=== PATIENT | female | born 1945 | race Caucasian/White ===

== ENCOUNTER 2016-12-26 15:30 | Inpatient (IN) | payer OTHER, MEDICARE ==
[~2016-12-26] VITALS: Ht 157.5 cm; Wt 83.1 kg
[2016-12-26 15:30] VITALS: BP 154/76; PULSE 77; RESP 16; TEMP 98.2; O2SAT 98
[2016-12-26] MEDS ORDERED: ASPI-147 PO (15:57)
[2016-12-26] MEDS ORDERED: VALS1TAB70 PO (15:57)
[2016-12-26] MEDS ORDERED: RANI150T PO (15:57)
[2016-12-26] MEDS ORDERED: ATEN100T PO (15:57)
[2016-12-26] MEDS ORDERED: LEVO75TA3 PO (15:57)
[2016-12-26] MEDS ORDERED: ATOR20TA15 PO (15:57)
[2016-12-26] MEDS ORDERED: CLON0.1T PO (15:57)
[2016-12-26 16:00] VITALS: BP 169/72; PULSE 64; RESP 16; O2SAT 98
[2016-12-26] MEDS ORDERED: SODIUM CHLORIDE 0.9% FLUSH 5 ML FLUSH IVF PRN (16:00)
--- NOTE | 2016-12-26 16:00 | PD ---
HPI Chief Complaint: General Weakness Time Seen by Provider: 15:47 Travel History International Travel<30 days: No Contact w/Intl Traveler<30days: No Traveled to known affect area: No History of Present Illness HPI The patient was seen and examined in the presence of the nurse. This patient complains of chest pain and heaviness. Duration 1 hour. Severity was moderate but it stopped on its own. She is currently pain-free. There were no obvious alleviating factors. Not exertionally induced. She denies history of coronary artery disease. Never had stress testing. She had been having some right upper quadrant pain and she got an outpatient ultrasound earlier today. However she is not having any abdominal pain now. She has some generalized weakness and fatigue. History of chronic anemia. [facility] Social History Alcohol Use: No Tobacco Use: No Substance Use: No Allergies-Medications (Allergen,Severity, Reaction): Coded Allergies: Codeine (Verified Allergy, Unknown, 12/26/16) Hydroxyzine (Verified Allergy, Unknown, 12/26/16) Morphine (Verified Allergy, Unknown, 12/26/16) Verapamil (Verified Allergy, Unknown, 12/26/16) Reported Meds & Prescriptions Reported Meds & Active Scripts Active Reported Clonidine (Clonidine HCl) 0.1 Mg Tab 0.1 Mg PO BID PRN Ranitidine (Ranitidine HCl) 150 Mg Tab 150 Mg PO DAILY Ecotrin Low Strength (Aspirin) 81 Mg Tabdr 81 Mg PO DAILY Atenolol 100 Mg Tab 100 Mg PO DAILY Levothyroxine (Levothyroxine Sodium) 75 Mcg Tab 75 Mcg PO DAILY Atorvastatin (Atorvastatin Calcium) 20 Mg Tab 20 Mg PO HS Valsartan 320 Mg Tab 320 Mg PO DAILY Review of Systems General / Constitutional: No: Fever Eyes: No: Visual changes HENT: No: Headaches Cardiovascular: Positive: Chest Pain or Discomfort Respiratory: No: Shortness of Breath Gastrointestinal: Positive: Nausea, Abdominal Pain Genitourinary: No: Dysuria Musculoskeletal: Positive: Weakness, No: Pain Skin: No Rash Neurologic: Positive: Weakness Psychiatric: No: Depression Endocrine: No: Polydipsia Hematologic/Lymphatic: No: Easy Bruising Physical Exam Narrative GENERAL: Well-nourished, well-developed patient in no apparent distress. SKIN: Warm and dry. HEAD: Atraumatic. Normocephalic. EYES: Pupils equal and round. No scleral icterus. No injection or drainage. ENT: No nasal bleeding or discharge. Mucous membranes pink and moist. NECK: Trachea midline. No JVD. CARDIOVASCULAR: Regular rate and rhythm. No murmur appreciated. Ectopic beat occasionally RESPIRATORY: No accessory muscle use. Clear to auscultation. Breath sounds equal bilaterally. GASTROINTESTINAL: Abdomen soft, non-tender, nondistended. Hepatic and splenic margins not palpable. MUSCULOSKELETAL: No obvious deformities. No clubbing. No cyanosis. No edema. NEUROLOGICAL: Awake and alert. No obvious cranial nerve deficits. Motor grossly within normal limits. Normal speech. PSYCHIATRIC: Appropriate mood and affect; insight and judgment normal. Data Data Last Documented VS Vital Signs Date Time Temp Pulse Resp B/P Pulse Ox O2 Delivery O2 Flow Rate FiO2 12/26/16 16:00 64 16 169/72 98 12/26/16 15:30 98.2 12/26/16 15:30 Nasal Cannula 3 Orders Electrocardiogram (12/26/16 15:47) Ckmb (Isoenzyme) Profile (12/26/16 15:47) Complete Blood Count With Diff (12/26/16 15:47) Prothrombin Time / Inr (Pt) (12/26/16 15:47) Act Partial Throm Time (Ptt) (12/26/16 15:47) Troponin I (12/26/16 15:47) Chest, Single Ap (12/26/16 15:47) Ecg Monitoring (12/26/16 15:47) Iv Access Insert/Monitor (12/26/16 15:47) Oximetry (12/26/16 15:47) Oxygen Administration (12/26/16 15:47) Sodium Chloride 0.9% Flush (Ns Flush) (12/26/16 16:00) Lipase (12/26/16 15:47) Comprehensive Metabolic Panel (12/26/16 15:47) B-Type Natriuretic Peptide (12/26/16 16:42) Ceftriaxone Inj (Rocephin Inj) (12/26/16 16:45) Admit To Inpatient (12/26/16 ) Vital Signs (Adult) Q4H (12/26/16 16:41) Activity Oob Ad Deyanira (12/26/16 16:41) 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 .CONTINUOUS (12/26/16 16:41) ^ Notify Dr: Other (12/26/16 16:41) Sodium Chloride 0.9% Flush (Ns Flush) (12/26/16 16:45) Sodium Chloride 0.9% Flush (Ns Flush) (12/26/16 21:00) Acetaminophen (Tylenol) (12/26/16 16:45) Ondansetron Inj (Zofran Inj) (12/26/16 16:45) Enoxaparin Inj (Lovenox Inj) (12/26/16 17:00) Scd Bilateral/Knee High ADWOA.BID (12/26/16 16:41) Naloxone Inj (Narcan Inj) (12/26/16 16:45) Inpatient Certification (12/26/16 ) Levofloxacin (Levaquin) (12/26/16 18:00) Admit Order (Ed Use Only) (12/26/16 16:43) Aspirin Ec (Ecotrin Ec) (12/27/16 09:00) Atenolol (Tenormin) (12/27/16 09:00) Atorvastatin (Lipitor) (12/26/16 21:00) Levothyroxine (Synthroid) (12/27/16 06:00) Valsartan (Diovan) (12/27/16 09:00) Labs Laboratory Tests Test 12/26/16 15:48 White Blood Count 7.2 TH/MM3 Red Blood Count 3.57 MIL/MM3 Hemoglobin 9.4 GM/DL Hematocrit 30.0 % Mean Corpuscular Volume 84.1 FL Mean Corpuscular Hemoglobin 26.2 PG Mean Corpuscular Hemoglobin 31.2 % Concent Red Cell Distribution Width 20.2 % Platelet Count 255 TH/MM3 Mean Platelet Volume 8.2 FL Neutrophils (%) (Auto) 78.6 % Lymphocytes (%) (Auto) 15.1 % Monocytes (%) (Auto) 4.8 % Eosinophils (%) (Auto) 0.9 % Basophils (%) (Auto) 0.6 % Neutrophils # (Auto) 5.7 TH/MM3 Lymphocytes # (Auto) 1.1 TH/MM3 Monocytes # (Auto) 0.3 TH/MM3 Eosinophils # (Auto) 0.1 TH/MM3 Basophils # (Auto) 0.0 TH/MM3 CBC Comment DIFF FINAL Differential Comment Prothrombin Time 11.0 SEC Prothromb Time International 1.0 RATIO Ratio Activated Partial 24.0 SEC Thromboplast Time Sodium Level 131 MEQ/L Potassium Level 3.9 MEQ/L Chloride Level 96 MEQ/L Carbon Dioxide Level 25.8 MEQ/L Anion Gap 9 MEQ/L Blood Urea Nitrogen 12 MG/DL Creatinine 0.83 MG/DL Estimat Glomerular Filtration 68 ML/MIN Rate Random Glucose 180 MG/DL Calcium Level 8.0 MG/DL Total Bilirubin 0.5 MG/DL Aspartate Amino Transf 27 U/L (AST/SGOT) Alanine Aminotransferase 27 U/L (ALT/SGPT) Alkaline Phosphatase 87 U/L Total Creatine Kinase 66 U/L Troponin I 0.17 NG/ML B-Type Natriuretic Peptide 206 PG/ML Total Protein 6.6 GM/DL Albumin 2.9 GM/DL Lipase 71 U/L MDM Medical Decision Making Medical Screen Exam Complete: Yes Emergency Medical Condition: Yes Medical Record Reviewed: Yes Differential Diagnosis Differential diagnosis includes [place], angina, pericarditis, pleurisy, GERD, anxiety. Narrative Course I have reviewed the patient's electronic medical record. She has not been here before IV placed I reviewed the EKG shows sinus rhythm with PACs occasionally and no ST elevation I reviewed the chest x-ray which shows bilateral infiltrates, inflammatory versus infectious Extended cardiac monitoring shows sinus rhythm with some ectopy CBC is normal Metabolic profile is normal CK is normal Troponin is elevated at 0.17, significance unclear at present Coagulation studies are normal She does have a productive cough for one day. I gave her 1 g IV Rocephin Added BNP after discussion with hospitalist who will admit Diagnosis Primary Impression: Chest pain in adult Additional Impressions: Elevated troponin I level Pulmonary infiltrate Admitting Information Admitting Physician Requests: it Jonny Knapp MD Dec 26, 2016 16:00
[2016-12-26 16:07] LABS: CHLORIDE 96 MEQ/L (98-107); POTASSIUM 3.9 MEQ/L (3.5-5.1); SODIUM (NA) 131 MEQ/L (136-145)
[2016-12-26 16:10] LABS: AUTOMATED NEUTROPHIL # 5.7 TH/MM3 (1.8-7.7); BASOPHIL % 0.6 % (0.0-2.0); EOSINOPHIL # 0.1 TH/MM3 (0-0.4); EOSINOPHIL % 0.9 % (0.0-4.0); HEMO FLAGS DIFF FINAL; LYMPH % 15.1 % (9.0-44.0); LYMPHOCYTE # 1.1 TH/MM3 (1.0-4.8); MEAN CELL VOLUME 84.1 FL (80.0-100.0); MEAN CORPUSCULAR HEMOGLOBIN 26.2 PG (27.0-34.0); MEAN CORPUSCULAR HGB CONC 31.2 % (32.0-36.0); MONO % 4.8 % (0.0-8.0); NEUT % 78.6 % (16.0-70.0); PLATELET COUNT 255 TH/MM3 (150-450); RED BLOOD COUNT 3.57 MIL/MM3 (4.00-5.30); RED CELL DISTRIBUTION WIDTH 20.2 % (11.6-17.2); WHITE BLOOD COUNT 7.2 TH/MM3 (4.0-11.0)
[2016-12-26 16:11] LABS: ANION GAP 9 MEQ/L (5-15); BICARBONATE 25.8 MEQ/L (21.0-32.0); BLOOD UREA NITROGEN 12 MG/DL (7-18)
[2016-12-26 16:14] LABS: ALT (GPT) 27 U/L (10-53); AST (GOT) 27 U/L (15-37); GLOMERULAR FILTRATION RATE 68 ML/MIN (>89)
[2016-12-26 16:15] LABS: TOTAL BILIRUBIN ADULT 0.5 MG/DL (0.2-1.0)
[2016-12-26 16:17] LABS: ALKALINE PHOSPHATASE 87 U/L (45-117)
[2016-12-26 16:19] LABS: CREATINE KINASE 66 U/L (26-192)
--- NOTE | 2016-12-26 16:20 | RADHPO ---
EXAM DATE/TIME: 12/26/2016 16:04 [place] COMPARISON: No previous studies available for comparison. INDICATIONS : Left sided chest pain and tightness starting today MEDICAL HISTORY : None. SURGICAL HISTORY : None. ENCOUNTER: Initial ACUITY: 1 day PAIN SCORE: 5/10 LOCATION: Left chest FINDINGS: Ill-defined but extensive infiltrate seen right lung, probably involve all segments of all lobes. The re is relatively minor consolidation on the left, primarily the base. No pleural effusion seen. No pn eumothorax. CONCLUSION: Bilateral vague infiltrates, right considerably worse than left. Findings are nonspecific but presuma pieter infectious or inflammatory etiology. Sergei Louis MD on December 26, 2016 at 16:17 Board Certified Radiologist. This report was verified electronically.
[2016-12-26] MEDS ORDERED: cefTRIAXone INJ 1,000 MG in SODIUM CHLORIDE 0.9% INJ 100 ML IV ONE (16:45)
[2016-12-26] MEDS ORDERED: SODIUM CHLORIDE 0.9% FLUSH 5 ML FLUSH FLUSH PRN (16:45)
[2016-12-26] MEDS ORDERED: ACETAMINOPHEN 325 MG TAB PO PRN (16:45)
[2016-12-26] MEDS ORDERED: NALOXONE HCL 0.4 MG/ML AMP IV PRN (16:45)
[2016-12-26] MEDS ORDERED: ENOXAPARIN SODIUM 40 MG/0.4 ML SYRINGE SQ SCH (17:00)
[2016-12-26 17:26] VITALS: BP 141/61
[2016-12-26] MEDS: LEVOFLOXACIN 750 MG TAB PO SCH (17:59)
[2016-12-26 18:00] VITALS: PULSE 75
[2016-12-26] MEDS: ONDANSETRON HCL 4 MG/2 ML VIAL IVP PRN (18:56)
[2016-12-26 20:50] VITALS: BP 165/65; PULSE 76; RESP 18; TEMP 96.5; O2SAT 100
[2016-12-26 21:00] VITALS: PULSE 74
[2016-12-26] MEDS ORDERED: ATORVASTATIN 20 MG TAB PO SCH (21:00)
[2016-12-26] MEDS: SODIUM CHLORIDE 0.9% FLUSH 5 ML FLUSH FLUSH SCH (22:43)
[2016-12-26] MEDS: FAMOTIDINE 20 MG TAB PO SCH (22:43)
[2016-12-27] VITALS (11 sets, daily range): BP systolic 101–179; BP diastolic 68–94; PULSE 60–79; RESP 18–20; TEMP 96.8–97.6; O2SAT 94–100
[2016-12-27] MEDS ORDERED: cloNIDine HCL 0.1 MG TAB PO PRN (01:00)
[2016-12-27] MEDS ORDERED: HEPARIN-D5W INJ 250 ML IV SCH (01:15)
[2016-12-27 01:42] LABS: HEMATOCRIT 27.8 % (35.0-46.0); MEAN CELL VOLUME 83.9 FL (80.0-100.0); MEAN CORPUSCULAR HGB CONC 32.2 % (32.0-36.0); PLATELET COUNT 216 TH/MM3 (150-450); RED BLOOD COUNT 3.31 MIL/MM3 (4.00-5.30); RED CELL DISTRIBUTION WIDTH 20.6 % (11.6-17.2); REVIEW FLAG FINAL; WHITE BLOOD COUNT 6.1 TH/MM3 (4.0-11.0)
[2016-12-27 02:10] LABS: APTT (PATIENT) 26.4 SEC (24.3-30.1); PROTHROMBIN TIME - PATIENT 11.6 SEC (9.8-11.6)
[2016-12-27] MEDS: LEVOTHYROXINE SODIUM 75 MCG TAB PO SCH (05:16)
[2016-12-27] MEDS: ONDANSETRON HCL 4 MG/2 ML VIAL IVP PRN ×2 (05:30→22:17)
[2016-12-27] MEDS: SODIUM CHLORIDE 0.9% FLUSH 5 ML FLUSH FLUSH SCH ×2 (09:00→20:24)
[2016-12-27] MEDS ORDERED: RESP: ALBUTEROL 2.5 MG/3 ML NEB (PRN) NEB (09:15)
[2016-12-27] MEDS ORDERED: MORPHINE SULFATE 4 MG/ML INJ IV PUSH PRN (09:15)
[2016-12-27] MEDS ORDERED: NITROGLYCERIN 0.4 MG SL 25 TABS/BTL SL PRN (09:15)
--- NOTE | 2016-12-27 09:24 | HHI.HP ---
HPI Service [facility] Primary Care Physician Radames Contreras M.D. Admission Diagnosis chest pain, elevated troponin,pulm inflitrates Diagnoses: Chief Complaint: Head pressure Chest pressure N/V diaphoresis Cough Travel History International Travel<30 Days: No Contact w/Intl Traveler <30 Da: No Traveled to Known Affected Are: No History of Present Illness This is a 71-year-old female with past medical history significant for high blood pressure, dyslipidemia, hypothyroidism, prediabetes, GERD and chronic anemia requiring regular iron infusions who presents to [facility] ED with complaints of 10 out of 10 "chest pressure" that occurred yesterday as she was preparing to have an abdominal ultrasound. Patient states she was at an outpatient imaging center preparing to have an abdominal ultrasound for a history of chronic lower abdominal pain as she stood up to go back for her testing she developed sudden onset of severe "head pressure" that was then followed by 10 out of 10 left-sided chest pressure with associated diaphoresis, nausea and vomiting, SOB and generalized weakness. Patient states that her symptoms resolved after a few minutes but when she went to go to the restroom shortly after, she had a single episode of nonbloody, nonmucoid diarrhea. Patient reports due to her chronic anemia that she never feels well. Her last iron infusion was 1 week ago. She admits to intermittent cough without any sputum production, sweats and fatigue for the past week. She denies any sputum production up until today when she coughed up a scant amount of whitish phlegm. Currently she is not having any complaints of head or chest pressure. She is still persistently nauseated with several episodes of vomiting. She has not had any more diarrhea since her admission. She denies any complaints of abdominal pain at this time. She denies any blood in the stool or blood in her urine. She also denies any dysuria. Review of her serial EKGs reveal some nonspecific changes and no evidence of ischemia. Serial troponins are 0.17, 0.29 and 0.26. Laboratory studies from the ED are significant for anemia with hemoglobin and hematocrit of 9.4 and 30 respectively. BNP is 206. Sodium 131. Patient denies any chest pain or pressure overnight but does report that she had some pain in the left shoulder which is now resolved. Review of Systems Constitutional: COMPLAINS OF: Diaphoretic episodes (patient reports ongoing episodes of "sweats" 1 week, most pronounced yesterday with episode of chest pressure), Fatigue, DENIES: Fever, Weight gain, Weight loss, Chills, Dizziness Endocrine: DENIES: Polydipsia, Polyuria Eyes: DENIES: Blurred vision, Diplopia, Double Vision Ears, nose, mouth, throat: COMPLAINS OF: Throat pain (mild, 1 day, attributed to recent vomiting episodes), DENIES: Tinnitus, Vertigo, Nasal discharge, Running Nose, Sinus Pain Respiratory: COMPLAINS OF: Cough (1 week with scant sputum production today only), DENIES: Wheezing, Hemoptysis, Shortness of breath Cardiovascular: COMPLAINS OF: Chest pain (described as chest pressure as stated in history of present illness), DENIES: Palpitations, Syncope, Dyspnea on Exertion, PND, Lower Extremity Edema Gastrointestinal: COMPLAINS OF: Abdominal pain (left lower quadrant, chronic, asymptomatic at present), Diarrhea (1 episode yesterday, nonbloody), Nausea, Vomiting, DENIES: Black stools, Bloody stools Genitourinary: DENIES: Urinary frequency, Urgency, Hematuria, Dysuria Musculoskeletal: DENIES: Joint Swelling, Back pain, Neck pain Integumentary: DENIES: Pruritus, Rash Hematologic/lymphatic: DENIES: Lymphadenopathy Immunologic/allergic: DENIES: Urticaria Neurologic: COMPLAINS OF: Headache (patient is a headache and reports head pressure yesterday, now resolved), DENIES: Localized weakness, Paresthesias, Speech Problems Psychiatric: DENIES: Anxiety, Confusion, Depression Past Family Social History Past Medical History Chronic anemia undergoing iron infusions, last treatment 1 week ago Hypertension Hypothyroidism GERD Dyslipidemia Pre-diabetic Past Surgical History Partial hysterectomy Back surgery 2 Reported Medications Clonidine (Clonidine HCl) 0.1 Mg Tab 0.1 Mg PO BID PRN Ranitidine (Ranitidine HCl) 150 Mg Tab 150 Mg PO DAILY Ecotrin Low Strength (Aspirin) 81 Mg Tabdr 81 Mg PO DAILY Atenolol 100 Mg Tab 100 Mg PO DAILY Levothyroxine (Levothyroxine Sodium) 75 Mcg Tab 75 Mcg PO DAILY Atorvastatin (Atorvastatin Calcium) 20 Mg Tab 20 Mg PO HS Valsartan 320 Mg Tab 320 Mg PO DAILY Allergies: Coded Allergies: Codeine (Verified Allergy, Unknown, 12/26/16) Hydroxyzine (Verified Allergy, Unknown, 12/26/16) Morphine (Verified Allergy, Unknown, 12/26/16) Verapamil (Verified Allergy, Unknown, 12/26/16) Active Ordered Medications Current Medications Medications (Trade) Dose Ordered Sig/Farida Route Start Time Stop Time Status Last Admin (NS Flush) 2 ml UNSCH PRN FLUSH 12/26/16 16:45 (NS Flush) 2 ml BID FLUSH 12/26/16 21:00 12/26/16 22:43 (Tylenol) 650 mg Q4H PRN PO 12/26/16 16:45 (Zofran Inj) 4 mg Q6H PRN IVP 12/26/16 16:45 12/27/16 05:30 (Narcan Inj) 0.4 mg UNSCH PRN IV 12/26/16 16:45 (Levaquin) 750 mg Q24H PO 12/26/16 18:00 12/26/16 17:59 (Ecotrin Ec) 81 mg DAILY PO 12/27/16 09:00 (Tenormin) 100 mg DAILY PO 12/27/16 09:00 (Lipitor) 20 mg HS PO 12/26/16 21:00 12/26/16 22:43 (Synthroid) 75 mcg DAILY@0600 PO 12/27/16 06:00 12/27/16 05:16 (Pepcid) 20 mg BID PO 12/26/16 21:00 12/26/16 22:43 (Diovan) 320 mg DAILY PO 12/27/16 09:00 Clonidine 0.1 mg 0.1 mg Q6H PRN PO 12/27/16 01:00 12/27/16 05:28 (Heparin-D5W Inj) 250 ml @ 0 mls/hr TITRATE IV 12/27/16 01:15 12/27/16 05:14 Family History Family medical history significant for Mother with unknown cancer Father, Alzheimer's Brothers 2 with diabetes Brother with a history of a IA in his 50s, cardiac stents Social History Patient denies any tobacco use alcohol consumption or illicit drug use. She currently lives with her daughter. She is fully functional with all of her ADLs. Physical Exam Vital Signs Vital Signs Date Time Temp Pulse Resp B/P Pulse Ox O2 Delivery O2 Flow Rate FiO2 12/27/16 08:00 96.8 76 18 167/76 100 Automatic Cuff 12/27/16 04:00 97.1 75 20 178/88 100 12/27/16 01:47 150/92 12/27/16 00:00 96.8 73 20 179/94 100 12/26/16 21:00 74 12/26/16 20:50 96.5 76 18 165/65 100 12/26/16 18:00 75 12/26/16 17:26 75 16 141/61 100 12/26/16 16:00 64 16 169/72 98 12/26/16 15:30 98.2 77 16 154/76 98 12/26/16 15:30 98 Nasal Cannula 3 12/26/16 15:30 64 16 98 12/26/16 15:30 98 Physical Exam GENERAL: This is a well-nourished, well-developed patient, in no apparent distress. A&Ox3. SKIN: No rashes, ecchymoses or lesions. Cool and dry. HEAD: Atraumatic. Normocephalic. No temporal or scalp tenderness. EYES: Pupils equal round and reactive. Extraocular motions intact. No scleral icterus. No injection or drainage. ENT: Nose without bleeding, purulent drainage or septal hematoma. Throat without erythema, tonsillar hypertrophy or exudate. Uvula midline. Airway patent. NECK: Trachea midline. No JVD or lymphadenopathy. Supple, nontender, no meningeal signs. CARDIOVASCULAR: Regular rate and rhythm without murmurs, gallops, or rubs. RESPIRATORY: Coarse BS noted. Breath sounds equal bilaterally. No wheezes, rales , or rhonchi. GASTROINTESTINAL: Abdomen soft, non-tender, nondistended. No hepato-splenomegaly , or palpable masses. No guarding. MUSCULOSKELETAL: Extremities without clubbing, cyanosis, or edema. No joint tenderness, effusion, or edema noted. No calf tenderness. NEUROLOGICAL: Awake and alert. Cranial nerves II through XII intact. Motor and sensory grossly within normal limits. Five out of 5 muscle strength in all muscle groups. Normal speech. Laboratory Laboratory Tests Test 12/26/16 12/26/16 12/27/16 12/27/16 15:48 22:37 01:30 05:15 White Blood Count 7.2 6.1 Red Blood Count 3.57 3.31 Hemoglobin 9.4 8.9 Hematocrit 30.0 27.8 Mean Corpuscular Volume 84.1 83.9 Mean Corpuscular Hemoglobin 26.2 27.0 Mean Corpuscular Hemoglobin 31.2 32.2 Concent Red Cell Distribution Width 20.2 20.6 Platelet Count 255 216 Mean Platelet Volume 8.2 8.2 Neutrophils (%) (Auto) 78.6 Lymphocytes (%) (Auto) 15.1 Monocytes (%) (Auto) 4.8 Eosinophils (%) (Auto) 0.9 Basophils (%) (Auto) 0.6 Neutrophils # (Auto) 5.7 Lymphocytes # (Auto) 1.1 Monocytes # (Auto) 0.3 Eosinophils # (Auto) 0.1 Basophils # (Auto) 0.0 CBC Comment DIFF FINAL Differential Comment Prothrombin Time 11.0 11.6 Prothromb Time International 1.0 1.0 Ratio Activated Partial 24.0 26.4 Thromboplast Time Sodium Level 131 Potassium Level 3.9 Chloride Level 96 Carbon Dioxide Level 25.8 Anion Gap 9 Blood Urea Nitrogen 12 Creatinine 0.83 Estimat Glomerular Filtration 68 Rate Random Glucose 180 Calcium Level 8.0 Total Bilirubin 0.5 Aspartate Amino Transf 27 (AST/SGOT) Alanine Aminotransferase 27 (ALT/SGPT) Alkaline Phosphatase 87 Total Creatine Kinase 66 82 85 Troponin I 0.17 0.29 0.26 B-Type Natriuretic Peptide 206 Total Protein 6.6 Albumin 2.9 Lipase 71 Result Diagram: 12/27/16 0130 12/26/16 1548 Imaging Last 24 hours Impressions Chest X-Ray 12/26/16 1547 Signed Impressions: Service Date/Time: Monday, December 26, 2016 16:04 - CONCLUSION: Bilateral vague infiltrates, right considerably worse than left. Findings are nonspecific but presumably infectious or inflammatory etiology. Sergei Louis MD Assessment and Plan Assessment and Plan 71-year-old female with past medical history significant for high blood pressure , dyslipidemia, hypothyroidism, prediabetes, GERD and chronic anemia requiring regular iron infusions who presents to [facility] ED with complaints of 10 out of 10 left-sided chest "pressure" that occurred yesterday as she was preparing to have an abdominal ultrasound. Chest pain - Possible NSTEMI. EKGs personally interpreted no obvious ischemic changes, nonspecific T-wave abnormality - Admitted to inpatient with continuous cardiac monitoring - Elevated troponins. Consult cardiology. Continue on heparin drip. - Echocardiogram ordered - Obtain TSH, magnesium level and lipid panel - Aspirin and high-dose statin daily - Nitroglycerin and morphine when necessary - Supplemental oxygen - Nothing by mouth for cardiac testing PNA - Levaquin - Duronebs - Supplemental oxygen - Supportive measures History of chronic anemia requiring iron infusions, last treatment 1 week ago - Hemoglobin dropped from 9.4 to 8.9 - iron studies ordered - Fecal occult blood test pending - AM labs to monitor trend Hyponatremia on admission - Likely due to volume depletion - IV fluids - Follow up on echo results, check TSH - AM labs to monitor Hypertension - Home medications resumed at time of admission to include Atenolol and Valsartan and clonidine when necessary - BP with fair control - monitor and adjust treatment as indicated Hypothyroidism - Obtain TSH level - Resume home dose of levothyroxine Dyslipidemia - High-dose statin - Obtain lipid panel GERD - Zantac DVT prophylaxis - On heparin drip Written by Janice Sears PA-C acting as scribe for Dr. Rivera on 12/27/16 at 12:01. All or portions of this note were transcribed by [email or web address] Camacho. I, Dr. Linda Rivera personally performed the history, physical exam, and medical decision making; and confirmed the accuracy of the information in the transcribed note. Authenticated by Dr. Linda Rivera on 12/27/16 at 18:42. Update - lexiscan reviewed. Discrepancy in EF% between echo and nuclear stress test. Patient doing well on room air, not symptomatic. Can likely be DC'ed home tomorrow on PO levaquin. Advised to get repeat cxr in 4-6 weeks to ensure infiltrates clear. Physician Certification 2 Midnight Certification Type: Admission for Inpatient Services Order for Inpatient Services The services are ordered in accordance with Medicare regulations or non- Medicare payer requirements, as applicable. In the case of services not specified as inpatient-only, they are appropriately provided as inpatient services in accordance with the 2-midnight benchmark. Estimated LOS (days): 2 2 days is the estimated time the patient will need to remain in the hospital, assuming treatment plan goals are met and no additional complications. Post-Hospital Plan: Home Janice Sears Dec 27, 2016 09:23 Linda Rivera MD Dec 27, 2016 18:43
[2016-12-27] MEDS: VALSARTAN 160 MG TAB PO SCH (09:26)
[2016-12-27] MEDS: ASPIRIN EC 81 MG TABEC PO SCH (09:26)
[2016-12-27] MEDS: FAMOTIDINE 20 MG TAB PO SCH ×2 (09:26→20:24)
[2016-12-27] MEDS: ATENOLOL 100 MG TAB PO SCH (09:27)
[2016-12-27] MEDS: SODIUM CHLOR 0.9% 1000 ML INJ 1,000 ML IV SCH ×2 (09:30→20:24)
[2016-12-27 10:01] LABS: CHLORIDE 98 MEQ/L (98-107); POTASSIUM 4.2 MEQ/L (3.5-5.1); SODIUM (NA) 133 MEQ/L (136-145)
[2016-12-27 10:07] LABS: ANION GAP 7 MEQ/L (5-15); BICARBONATE 27.6 MEQ/L (21.0-32.0); MAGNESIUM 1.7 MG/DL (1.5-2.5)
[2016-12-27 10:09] LABS: BLOOD UREA NITROGEN 11 MG/DL (7-18)
[2016-12-27 10:10] LABS: GLOMERULAR FILTRATION RATE 69 ML/MIN (>89)
--- NOTE | 2016-12-27 10:27 | EKG ---
Date Performed: 12/26/2016 Time Performed: 15:40:24 PTAGE: 71 years EKG: Sinus rhythm with PAC(s) with borderline 1st degree A-V block Lateral T wave changes are nonspecific Borderline E CG NO PREVIOUS TRACING DOCTOR: Luis Enrique Vasquez Interpretating Date/Time 12/27/2016 10:25:39
--- NOTE | 2016-12-27 10:49 | EKG ---
Date Performed: 12/27/2016 Time Performed: 04:10:32 PTAGE: 71 years EKG: Sinus arrhythmia Lateral T wave changes are nonspecific Borderline ECG PREVIOUS TRACING : 12/27/2016 01.23 Compared to prior tracing no significant change DOCTOR: Luis Enrique Vasquez Interpretating Date/Time 12/27/2016 10:47:23
--- NOTE | 2016-12-27 10:50 | EKG ---
Date Performed: 12/27/2016 Time Performed: 01:23:06 PTAGE: 71 years EKG: Sinus arrhythmia Lateral T wave changes are nonspecific Borderline ECG PREVIOUS TRACING : 12/26/2016 15.40 Compared to prior tracing no significant change DOCTOR: Luis Enrique Vasquez Interpretating Date/Time 12/27/2016 10:47:31
[2016-12-27 11:09] LABS: APTT (PATIENT) 34.9 SEC (24.3-30.1)
[2016-12-27] MEDS ORDERED: REGADENOSON INJ 0.4 MG/5 ML SYR IV ONE (11:14)
[2016-12-27] MEDS: RESP: ALBUTEROL 2.5 MG/IPRATROPIUM 0.5 MG NEB (SCH) NEB ×3 (11:21→19:42)
--- NOTE | 2016-12-27 12:14 | EC ---
Study Study Date:12/27/2016 STUDY CONCLUSIONS SUMMARY - Left ventricle: The cavity size was normal. Wall thickness was normal. Systolic function was normal. The estimated ejection fraction was in the range of 55% to 60%. Wall motion was normal; there were no regional wall motion abnormalities. - Mitral valve: Mild to moderate regurgitation. - Tricuspid valve: Mild-moderate regurgitation. - Pulmonary arteries: Systolic pressure was mildly increased. PA peak pressure: 43mm Hg (S). If LV function is below 40, please consider prescribing an ACEI or ARB or document rationale for non-use. PROCEDURE DATA STUDY STATUS: Elective. Procedure: Transthoracic echocardiography. Image quality was good. Scanning was performed from the parasternal, apical, and subcostal acoustic windows. Study completion: The patient tolerated the procedure well. Transthoracic echocardiography. M-mode, complete 2D, complete spectral Doppler, and color Doppler. Patient status: Inpatient. CARDIAC ANATOMY LEFT VENTRICLE: The cavity size was normal. Wall thickness was normal. Systolic function was normal. The estimated ejection fraction was in the range of 55% to 60%. Wall motion was normal; there were no regional wall motion abnormalities. AORTIC VALVE: Trileaflet; mildly thickened, mildly calcified leaflets. Doppler: Transvalvular velocity was within the normal range. There was no stenosis. No regurgitation. AORTA: Aortic root: The aortic root was normal in size. MITRAL VALVE: Structurally normal valve. Doppler: Transvalvular velocity was within the normal range. There was no evidence for stenosis. Mild to moderate regurgitation. LEFT ATRIUM: The atrium was at the upper limits of normal in size. RIGHT VENTRICLE: The cavity size was normal. Wall thickness was normal. PULMONIC VALVE: Doppler: Transvalvular velocity was within the normal range. There was no evidence for stenosis. No regurgitation. TRICUSPID VALVE: Structurally normal valve. Doppler: Transvalvular velocity was within the normal range. Mild-moderate regurgitation. PULMONARY ARTERY: The main pulmonary artery was normal-sized. Systolic pressure was mildly increased. RIGHT ATRIUM: The atrium was normal in size. PERICARDIUM: There was no pericardial effusion. SYSTEMIC VEINS: Inferior vena cava: The vessel was normal in size. BASIC MEASUREMENTS ADULT Normal Left ventricle LV internal dimension, ED, chordal level, *36.4 mm 43-52 PLAX LV internal dimension, ES, chordal level, 28 mm 23-38 PLAX Fractional shortening, chordal level, PLAX *23 % >29 LV posterior wall thickness, ED 9.59 mm IVS/LVPW ratio, ED 1.26 <1.3 Ventricular septum Septal thickness, ED 12.1 mm Aortic valve Leaflet separation 16 mm 15-26 Right ventricle RV internal dimension, ED, PLAX 27.1 mm 19-38 BASIC MEASUREMENTS ADULT Normal Aortic valve Leaflet separation 16 mm 15-26 Aorta Root diameter, ED 28 mm 20-37 Left atrium Anterior-posterior dimension, ES 34 mm 19-40 LA/aortic root ratio 1.21 DOPPLER MEASUREMENTS ADULT Normal Main pulmonary artery Pressure, S *43 mm Hg =30 Tricuspid valve Regurgitant peak velocity 286 cm/s Peak RV-RA gradient, S 33 mm Hg Maximal regurgitant velocity 286 cm/s Systemic veins Estimated CVP 10 mm Hg Right ventricle RV pressure, S *43 mm Hg <30 LEGEND: Mean values are shown as u=mean value. Asterisk (*) fam values outside specified normal range. Prepared and signed by Nickolas Perales [id number]
[2016-12-27 12:53] LABS: FERRITIN 207 NG/ML (8-252); HDL CHOLESTEROL 39.8 MG/DL (40.0-60.0); LDL CHOLESTEROL 51 MG/DL (0-99); TRANSFERRIN IRON PROFILE 262 MG/DL (200-360)
--- NOTE | 2016-12-27 14:18 | RADHPO ---
EXAM DATE/TIME: 12/27/2016 11:14 [place] COMPARISON: No previous studies available for comparison. INDICATIONS : Midsternal chest pain for 1 hour. Myocardial infarction. DOSE: 25.8 mCi Tc99m Myoview at stress. 8.1 mCi Tc99m Myoview at rest. 0.4 mg Lexiscan STRESS SYMPTOMS: Shortness of breath and weak feeling. EJECTION FRACTION: 38% MEDICAL HISTORY : Hypertension. Hypercholesterolemia. SURGICAL HISTORY : Hysterectomy. Spine surgery. ENCOUNTER: Initial ACUITY: 1 day PAIN SCALE: 3/10 LOCATION: Midsternal chest TECHNIQUE: The patient underwent pharmacologic stress with infusion of prescribed dose. Continuous ECG tracing was monitored during stress. Gated SPECT imaging was performed after stress and conventional SPECT i maging was performed at rest. The examination was performed on a SPECT/CT scanner, both attenuation and non-corrected datasets were reviewed. FINDINGS: DISTRIBUTION: The maximum perfused segment at stress is in the lateral wall. PERFUSION STUDY: The pattern of perfusion at stress is within normal limits. GATED STUDY: There is global hypokinesis CONCLUSION: 1. No significant reversibility to suggest ischemia. 2. Global hypokinesis with ejection fraction 38%. RISK CATEGORY: Intermediate (1-3% Annual Mortality Rate) Jordon Maher MD on December 27, 2016 at 14:15 Board Certified Radiologist. This report was verified electronically.
[2016-12-27 14:27] LABS: HEMOGLOBIN A1a 1.3 %; HEMOGLOBIN A1b 1.5 %; HEMOGLOBIN Ao 86.1 %; HEMOGLOBIN LA1C 1.8 %; HEMOGLOBIN P3 3.6 %
[2016-12-27] MEDS ORDERED: MAGNESIUM OXIDE 400 MG TAB PO ONE (18:30)
[2016-12-27] MEDS: LEVOFLOXACIN 750 MG TAB PO SCH (18:37)
[2016-12-27 19:17] LABS: APTT (PATIENT) 39.3 SEC (24.3-30.1)
[2016-12-27] MEDS ORDERED: ATORVASTATIN 40 MG TAB PO SCH (21:00)
[2016-12-28] VITALS: BP 140/71; PULSE 67; RESP 20; TEMP 98; O2SAT 93
[2016-12-28 04:00] VITALS: BP 134/69; PULSE 61; RESP 20; TEMP 97; O2SAT 96
[2016-12-28] MEDS: LEVOTHYROXINE SODIUM 75 MCG TAB PO SCH (06:18)
[2016-12-28] MEDS: RESP: ALBUTEROL 2.5 MG/IPRATROPIUM 0.5 MG NEB (SCH) NEB ×2 (07:30→11:23)
[2016-12-28 07:37] LABS: AUTOMATED NEUTROPHIL # 3.2 TH/MM3 (1.8-7.7); BASOPHIL % 0.5 % (0.0-2.0); EOSINOPHIL % 0.9 % (0.0-4.0); HEMATOCRIT 25.7 % (35.0-46.0); LYMPH % 16.5 % (9.0-44.0); LYMPHOCYTE # 0.7 TH/MM3 (1.0-4.8); MEAN CELL VOLUME 84.3 FL (80.0-100.0); MEAN CORPUSCULAR HEMOGLOBIN 26.1 PG (27.0-34.0); MONO % 10.8 % (0.0-8.0); NEUT % 71.3 % (16.0-70.0); PLATELET COUNT 205 TH/MM3 (150-450); RED BLOOD COUNT 3.05 MIL/MM3 (4.00-5.30); RED CELL DISTRIBUTION WIDTH 20.3 % (11.6-17.2); WHITE BLOOD COUNT 4.4 TH/MM3 (4.0-11.0)
[2016-12-28 07:40] LABS: HEMO FLAGS AUTO DIFF
[2016-12-28 08:00] VITALS: BP 157/73; PULSE 76; RESP 16; TEMP 97.8; O2SAT 98
[2016-12-28 08:02] LABS: SCAN/DIFF AUTO DIFF CONFIRMED
[2016-12-28 08:15] VITALS: PULSE 76
--- NOTE | 2016-12-28 08:39 | MB ---
cc: DELROY ZIMMERMAN G. FREDERICK M.D. BARTHOLOMEW, BETH A. MD DATE OF CONSULTATION: 12/27/2016 REASON FOR CONSULTATION Elevation of troponin. HISTORY OF PRESENT ILLNESS Debi Quinonez is a pleasant 71-year-old female who presented originally to [facility] Emergency Room on December 26, 2016 due to generalized weakness, chest pain, nausea and vomiting. She states that she had a normal morning other than she was not allowed to eat because she was undergoing an ultrasound of her ovaries. While at [facility] she started feeling nauseous and vomited. She also started getting a headache and had some chest tightness on the left side of her chest. After she was done vomiting they placed her in a room, took her blood pressure which was significantly elevated but she forgets the exact number. She took her clonidine and after taking it she felt better with no more chest pain. She previously was offered a stress test in the outpatient office due to shortness of breath which has been chronic in nature but declined further workup at that time. Currently she is chest pain free without shortness of breath. PAST MEDICAL HISTORY 1. Hypertension. 2. GERD. 3. Hypothyroidism. PAST SURGICAL HISTORY 1. Partial hysterectomy. 2. Back surgery x2. ALLERGIES 1. CODEINE. 2. HYDROXYZINE. 3. MORPHINE. 4. VERAPAMIL. MEDICATIONS 1. Aspirin 81 mg daily. 2. Valsartan 320 mg daily. 3. Atenolol 100 mg daily. 4. Clonidine 0.1 mg b.i.d. as needed for blood pressure. 5. Lipitor 20 mg every night. 6. Ranitidine 150 mg daily. 7. Synthroid 75 mcg daily. SOCIAL HISTORY Denies tobacco, alcohol or drug abuse. FAMILY HISTORY Denies premature coronary artery disease or sudden cardiac within the family. REVIEW OF SYSTEMS 14 systems were reviewed in the emergency room records and pertinent positives and negatives as above, otherwise negative. PHYSICAL EXAMINATION VITAL SIGNS: Temperature 97.1, heart rate 75, blood pressure 178/80, respirations 20, pulse ox 100% on two liters. GENERAL: In general the patient appears well in no acute distress, alert, awake and oriented x3. HEENT: Extraocular muscles intact. Mucous membranes moist. NECK: Supple. No JVD at 45 degrees. No carotid bruits heard bilaterally. Carotid upstrokes brisk in nature. HEART: Regular rate and rhythm. Positive first and second heart sounds with no murmurs, gallops or rubs. PMI is nondisplaced. LUNGS: Decreased breath sounds bilaterally but no overt wheezes, rales or rhonchi. ABDOMEN: Obese, nontender, nondistended. No organomegaly noted. EXTREMITIES: No clubbing, cyanosis or edema. Femoral and distal pulses intact bilaterally. NEUROLOGIC: No focal deficits. SKIN: Warm, dry and intact. MUSCULOSKELETAL: Osteopathically no kyphoscoliosis, lordosis or paraspinal tender points. LABORATORY Hemoglobin 8.9, hematocrit 27.8, platelets 216. Potassium 3.9, BUN 12, creatinine 0.83. Troponin maximum 0.29. BNP 206. IMAGING Chest x-ray: Bilateral vague infiltrates, nonspecific but presumably infectious or inflammatory etiology. ELECTROCARDIOGRAM Electrocardiogram (02/25/2017 at 1540): Normal sinus rhythm, occasional PAC, nonspecific ST-T wave changes. IMPRESSION 1. Atypical chest pain for coronary insufficiency. 2. Mild elevation of troponins, NSTEMI type 1 versus type 2. 3. Possible pneumonia. 4. Accelerated hypertension with a history of longstanding hypertension. 5. Chronic anemia. RECOMMENDATIONS 1. Debi presented with a multitude of symptoms which may be related to accelerated hypertension. This may have caused some of her chest pain and then was relieved once her blood pressure was decreased. This may have also cause demand ischemia and a mild rise in her troponins. 2. I did offer cardiac catheterization for an ischemic evaluation based on her elevation of troponins but she would like to undergo a stress test first in the chance that it may be negative and that we can could control her blood pressure and avoid cardiac catheterization if possible. 3. She will undergo pharmacologic nuclear stress testing today. If negative we will up her blood pressure management. If positive then consideration will be made for coronary visualization. 4. Will check a 2-D echo to look at her overall left ventricular function, cardiac structure and possible valulopathies. 5. Further recommendations will be made after pharmacologic nuclear stress testing. Thank you for allowing me to see Debi Quinonez. If there are any questions, please do not hesitate to call. Delroy Zimmerman DO VGP/BT /8:10 AM /8:06 AM
[2016-12-28] MEDS: ATENOLOL 100 MG TAB PO SCH (08:41)
[2016-12-28] MEDS: FAMOTIDINE 20 MG TAB PO SCH (08:42)
[2016-12-28] MEDS: ASPIRIN EC 81 MG TABEC PO SCH (08:42)
[2016-12-28] MEDS: VALSARTAN 160 MG TAB PO SCH (08:42)
[2016-12-28] MEDS: SODIUM CHLORIDE 0.9% FLUSH 5 ML FLUSH FLUSH SCH (08:42)
[2016-12-28] MEDS: SODIUM CHLOR 0.9% 1000 ML INJ 1,000 ML IV SCH (08:44)
[2016-12-28 08:46] LABS: BICARBONATE 28.6 MEQ/L (21.0-32.0); MAGNESIUM 2.1 MG/DL (1.5-2.5); POTASSIUM 4.2 MEQ/L (3.5-5.1)
[2016-12-28 12:00] VITALS: BP 142/68; PULSE 67; RESP 16; TEMP 97.7; O2SAT 98
--- NOTE | 2016-12-28 13:44 | HHI.DCPOC ---
Discharge Care Plan Diagnosis: (1) Pulmonary infiltrate (2) Elevated troponin I level Goals to Promote Your Health * To prevent worsening of your condition and complications * To maintain your health at the optimal level Directions to Meet Your Goals Take your medications as prescribed Follow your dietary instruction Follow activity as directed Keep your appointments as scheduled Take your immunizations and boosters as scheduled If your symptoms worsen call your PCP, if no PCP go to Urgent Care Center or Emergency Room Smoking is Dangerous to Your Health. Avoid second hand smoke Call the 24-hour hour crisis hotline for domestic abuse at Moraima Ryder MD Dec 28, 2016 13:44
[2016-12-28] MEDS ORDERED: LEVA750T PO (13:45)
--- NOTE | 2016-12-28 13:54 | HHI.DS ---
josephine Discharge Summary Admission Date Dec 26, 2016 at 16:44 Discharge Date: Dec 28, 2016 Admitting Diagnosis chest pain, elevated troponin,pulm inflitrates (1) Chest pain in adult ICD Code: R07.9 (2) Pulmonary infiltrate ICD Code: R91.8 Procedures none Brief History - From Admission This is a 71-year-old female with past medical history significant for high blood pressure, dyslipidemia, hypothyroidism, prediabetes, GERD and chronic anemia requiring regular iron infusions who presents to [facility] ED with complaints of 10 out of 10 "chest pressure" that occurred yesterday as she was preparing to have an abdominal ultrasound. Patient states she was at an outpatient imaging center preparing to have an abdominal ultrasound for a history of chronic lower abdominal pain as she stood up to go back for her testing she developed sudden onset of severe "head pressure" that was then followed by 10 out of 10 left-sided chest pressure with associated diaphoresis, nausea and vomiting, SOB and generalized weakness. Patient states that her symptoms resolved after a few minutes but when she went to go to the restroom shortly after, she had a single episode of nonbloody, nonmucoid diarrhea. Patient reports due to her chronic anemia that she never feels well. Her last iron infusion was 1 week ago. She admits to intermittent cough without any sputum production, sweats and fatigue for the past week. She denies any sputum production up until today when she coughed up a scant amount of whitish phlegm. Currently she is not having any complaints of head or chest pressure. She is still persistently nauseated with several episodes of vomiting. She has not had any more diarrhea since her admission. She denies any complaints of abdominal pain at this time. She denies any blood in the stool or blood in her urine. She also denies any dysuria. Review of her serial EKGs reveal some nonspecific changes and no evidence of ischemia. Serial troponins are 0.17, 0.29 and 0.26. Laboratory studies from the ED are significant for anemia with hemoglobin and hematocrit of 9.4 and 30 respectively. BNP is 206. Sodium 131. Patient denies any chest pain or pressure overnight but does report that she had some pain in the left shoulder which is now resolved. CBC/BMP: 12/28/16 0710 12/28/16 0710 Significant Findings Laboratory Tests Test 12/26/16 12/26/16 12/27/16 12/27/16 15:48 22:37 01:30 05:15 Red Blood Count 3.57 MIL/MM3 3.31 MIL/MM3 (4.00-5.30) (4.00-5.30) Hemoglobin 9.4 GM/DL 8.9 GM/DL (11.6-15.3) (11.6-15.3) Hematocrit 30.0 % 27.8 % (35.0-46.0) (35.0-46.0) Mean Corpuscular Hemoglobin 26.2 PG (27.0-34.0) Mean Corpuscular Hemoglobin 31.2 % Concent (32.0-36.0) Red Cell Distribution Width 20.2 % 20.6 % (11.6-17.2) (11.6-17.2) Neutrophils (%) (Auto) 78.6 % (16.0-70.0) Activated Partial 24.0 SEC Thromboplast Time (24.3-30.1) Sodium Level 131 MEQ/L 133 MEQ/L (136-145) (136-145) Chloride Level 96 MEQ/L (98-107) Estimat Glomerular Filtration 68 ML/MIN (>89) 69 ML/MIN (>89) Rate Random Glucose 180 MG/DL 137 MG/DL (74-106) (74-106) Calcium Level 8.0 MG/DL 8.2 MG/DL (8.5-10.1) (8.5-10.1) Troponin I 0.17 NG/ML 0.29 NG/ML 0.26 NG/ML (0.02-0.05) (0.02-0.05) (0.02-0.05) B-Type Natriuretic Peptide 206 PG/ML (0-100) Albumin 2.9 GM/DL (3.4-5.0) Lipase 71 U/L (73-393) Percent Iron Saturation 14.2 % (20-50) Cholesterol Level 112 MG/DL (120-200) HDL Cholesterol 39.8 MG/DL (40.0-60.0) Test 12/27/16 12/27/16 12/28/16 10:50 18:50 07:10 Activated Partial 34.9 SEC 39.3 SEC Thromboplast Time (24.3-30.1) (24.3-30.1) Red Blood Count 3.05 MIL/MM3 (4.00-5.30) Hemoglobin 8.0 GM/DL (11.6-15.3) Hematocrit 25.7 % (35.0-46.0) Mean Corpuscular Hemoglobin 26.1 PG (27.0-34.0) Mean Corpuscular Hemoglobin 31.0 % Concent (32.0-36.0) Red Cell Distribution Width 20.3 % (11.6-17.2) Neutrophils (%) (Auto) 71.3 % (16.0-70.0) Monocytes (%) (Auto) 10.8 % (0.0-8.0) Lymphocytes # (Auto) 0.7 TH/MM3 (1.0-4.8) Estimat Glomerular Filtration 57 ML/MIN (>89) Rate Random Glucose 135 MG/DL (74-106) Calcium Level 8.1 MG/DL (8.5-10.1) Imaging Last Impressions Myocardial Perfusion Scan Nuc Med 12/27/16 0000 Signed Impressions: Service Date/Time: December 11:14 - CONCLUSION: 1. No significant reversibility to suggest ischemia. 2. Global hypokinesis with ejection fraction 38%%. RISK CATEGORY: Intermediate (1-3%% Annual Mortality Rate) Jordon Maher MD Chest X-Ray 12/26/16 1547 Signed Impressions: Service Date/Time: Monday, December 26, 2016 16:04 - CONCLUSION: Bilateral vague infiltrates, right considerably worse than left. Findings are nonspecific but presumably infectious or inflammatory etiology. Sergei Louis MD PE at Discharge GENERAL: This is a well-nourished, well-developed patient, in no apparent distress. CARDIOVASCULAR: Regular rate and rhythm without murmurs, gallops, or rubs. RESPIRATORY: Clear to auscultation. Breath sounds equal bilaterally. No wheezes , rales, or rhonchi. GASTROINTESTINAL: Abdomen soft, non-tender, nondistended. Normal active bowel sounds MUSCULOSKELETAL: Extremities without clubbing, cyanosis, or edema. NEURO: Alert & Oriented x4 to person, place, time, situation. Moves all ext x4 Pt update on day of discharge Patient seen today in follow-up for shortness of breath and her chest discomfort. No new complaints today. Reports no further chest discomfort, respiratory status is improved. Cardiac imaging unremarkable and patient desires to go home for further outpatient testing if needed. Hospital Course Patient seen and evaluated today in follow-up for a typical chest pain found to have pneumonia. She did have elevated cardiac enzymes and a stress test which was negative for acute changes or reversible ischemic changes. He was seen by cardiology did have echocardiogram as well. She does have elevated pulmonary artery pressure which may have some Chronic obstructive changes. Patient has not been diagnosed with this. She will continue follow-up out patient. Her hemoglobin is 8.0 and she will need to follow-up with her primary doctor. No sign of bleeding is noted. Pt Condition on Discharge: Good Discharge Disposition: Discharge Home Discharge Time: > 30 minutes Discharge Instructions DIET: Follow Instructions for: As Tolerated, No Restrictions Activities you can perform: Regular-No Restrictions Follow up Referrals: Cardiology - 2 Weeks @ [facility] New Medications: Levofloxacin (Levaquin) 750 Mg Tab 750 MG PO Q48H Infection #6 TAB Continued Medications: Aspirin DR (Ecotrin Low Strength) 81 Mg Tabdr 81 MG PO DAILY #30 Ref 0 TAB Atenolol (Atenolol) 100 Mg Tab 100 MG PO DAILY Blood Pressure Management #30 Ref 0 TAB Atorvastatin (Atorvastatin) 20 Mg Tab 20 MG PO HS Cholesterol Management #30 Ref 0 TAB Clonidine (Clonidine) 0.1 Mg Tab 0.1 MG PO BID PRN INCREASE IN BLOOD PRESSURE #60 Ref 0 TAB Levothyroxine (Levothyroxine) 75 Mcg Tab 75 MCG PO DAILY Thyroid #30 Ref 0 TAB Ranitidine (Ranitidine) 150 Mg Tab 150 MG PO DAILY Heartburn Management #30 Ref 0 TAB Valsartan (Valsartan) 320 Mg Tab 320 MG PO DAILY #30 Ref 0 TAB Moraima Ryder MD Dec 28, 2016 13:54
[2016-12-28] MEDS ORDERED: FAMOTIDINE 20 MG TAB PO SCH (21:00)
[2016-12-29] MEDS ORDERED: LEVOFLOXACIN 750 MG TAB PO SCH (18:00)
== END 2016-12-28 14:50 | disposition home or self-care (01) | DRG 194 ==
LOC: PHED 15:30 → PHEDA 16:44 → PH3B 17:44
PROVIDERS: ADMIT Hospitalist; ATTEND Hospitalist
DX: J18.9 Pneumonia, unspecified organism (principal); E87.1 Hypo-osmolality and hyponatremia; R07.89 Other chest pain; R74.8 Abnormal levels of other serum enzymes; I10 Essential (primary) hypertension; K21.9 Gastro-esophageal reflux disease without esophagitis; D64.9 Anemia, unspecified; E86.9 Volume depletion, unspecified; E03.9 Hypothyroidism, unspecified; E78.5 Hyperlipidemia, unspecified; R11.2 Nausea with vomiting, unspecified; M25.512 Pain in left shoulder
CPT/HCPCS: 71010; 78452; 80048; 80053; 80061; 82550; 82728; 83036; 83540; 83550; 83690; 83735; 83880; 84443; 84484; 85025; 85027; 85610; 85730; 93005; 93017; 93306; 94640; 94664; A9502; J0696; J1644; J1650; J2405; J2785; J7030